=== PATIENT | female | born 1985 | race Two or more races ===

== ENCOUNTER 2021-10-31 23:49 | Emergency (ER) | payer MEDICAID ==
[~2021-10-31] VITALS: Ht 152.4 cm; Wt 90.7 kg
--- NOTE | 2021-10-31 23:59 | NUR ---
BIBRA 860 FROM HOME FOR C/O SHARP LOWER QUAD ABD PAIN. W/ HX OF OVARIAN CYST. PATIENT ALERT AND ORIENTED X3. AMBULATORY WITH NON LABORED BREATHING. PATIENT ON MONITOR AND POX, AWAITING MD SRIVASTAVA.
[2021-11-01] MEDS ORDERED: MORPHINE SULFATE INJ 4 MG/ML DISP.SYRIN ONE ×2 (00:34→02:48)
--- NOTE | 2021-11-01 00:45 | NUR ---
BLOOD COLLECTED AND SENT TO LAB
--- NOTE | 2021-11-01 00:45 | NUR ---
URINE COLLECTED AND SENT TO LAB
[2021-11-01 00:48] LABS: BASOPHILS # (AUTO) 0.1 K/uL (0.0-0.2); BASOPHILS % (AUTO) 0.6 % (0.0-2.0); EOSINOPHILS % (AUTO) 1.1 % (0.0-6.0); HEMATOCRIT 33 % (33-45); HEMOGLOBIN 11.1 g/dL (11.5-14.8); LYMPHOCYTES # (AUTO) 2.4 K/uL (0.8-4.8); LYMPHOCYTES % (AUTO) 20.4 % (20.0-44.0); MEAN CORPUSCULAR HGB CONC 34 g/dl (31.0-36.0); MEAN CORPUSCULAR VOLUME 86 fL (82-100); MONOCYTES # (AUTO) 1.1 K/uL (0.1-1.30); MONOCYTES % (AUTO) 9.2 % (2.0-12.0); NEUTROPHILS # (AUTO) 8.2 K/uL (1.8-8.9); NEUTROPHILS % (AUTO) 68.7 % (43.0-81.0); PLATELET COUNT (AUTO) 594 K/uL (150-450); RED BLOOD CELL COUNT(AUTO) 3.82 MIL/uL (4.0-5.2); WHITE BLOOD COUNT (AUTO) 11.9 K/uL (4.3-11.0)
[2021-11-01] MEDS ORDERED: MORPHINE SULFATE INJ 2 MG/ML DISP.SYRIN IV ONE ×2 (01:00→03:00)
[2021-11-01 01:06] LABS: POTASSIUM 3.8 mmol/L (3.5-5.1)
[2021-11-01 01:18] LABS: ALBUMIN 2.7 g/dL (3.4-5.0); BILIRUBIN,DIRECT 0.3 mg/dL (0.0-0.2); BILIRUBIN,TOTAL 0.6 mg/dL (0.2-1.0); TOTAL PROTEIN, SERUM 7.7 g/dL (6.4-8.2)
[2021-11-01] MEDS ORDERED: IOHEXOL-300 100 ML VIAL IV ONE (02:11)
[2021-11-01] MEDS ORDERED: IV NS 0.9% 250 ML IV ONE (02:11)
--- NOTE | 2021-11-01 03:25 | NUR ---
DR CLEMONS ON THE PHONE WITH DR COOPER FOR [employer] CONSULT
[2021-11-01] MEDS ORDERED: LEVO750T46 PO (03:36)
[2021-11-01] MEDS ORDERED: METR500T PO (03:36)
[2021-11-01] MEDS ORDERED: HYDR-4209 PO (03:36)
--- NOTE | 2021-11-01 03:57 | NUR ---
MEDICALLY STABLE FOR D/C PER MD. Patient discharged to home in stable condition. Written and verbal after care instructions given. Patient verbalizes understanding of instruction.
[2021-11-01 03:59] VITALS: BP 114/56
== END 2021-11-01 04:05 | disposition home or self-care (01) ==
LOC: ER 23:49
DX: N83.292 Other ovarian cyst, left side (principal); R10.32 Left lower quadrant pain; F17.200 Nicotine dependence, unspecified, uncomplicated; Z87.42 Personal history of other diseases of the female genital tract; Z90.89 Acquired absence of other organs; Z88.8 Allergy status to other drugs, medicaments and biological substances; Z79.899 Other long term (current) drug therapy
CPT/HCPCS: 36415; 74177; 76856; 80048; 80076; 83605; 84703; 85025; 85730; 96374; 96376; 99285; J2270 ×2; J7050; Q9967